=== PATIENT | female | born 1950 | race Caucasian/White ===

== ENCOUNTER → 2017-01-30 | Outpatient (CLI) | payer BC, OTHER | LOC: BRMIMAGING 13:47 | PROVIDERS: ATTEND Family Medicine | DX: Z12.31 Encounter for screening mammogram for malignant neoplasm of breast (principal) | CPT/HCPCS: G0202 ==

== ENCOUNTER → 2017-02-04 | Outpatient (CLI) | payer BC | LOC: BRMIMAGING 08:34 | PROVIDERS: ATTEND Family Medicine | DX: Z13.820 Encounter for screening for osteoporosis (principal); M85.80 Other specified disorders of bone density and structure, unspecified site; Z78.0 Asymptomatic menopausal state; Z79.899 Other long term (current) drug therapy; E07.9 Disorder of thyroid, unspecified ==

== ENCOUNTER → 2017-05-07 | Outpatient (CLI) | payer BC ==
[~2017-05-07] MED LIST: GADOBUTROL 10 ML VIAL IVP ONE
== END ==
LOC: FIMAGING 09:44
PROVIDERS: ATTEND Internal Medicine Hematology & Oncology
DX: C66.9 Malignant neoplasm of unspecified ureter (principal)
CPT/HCPCS: A9585

== ENCOUNTER 2017-05-19 07:40 | Day surgery (SDC) | payer BC ==
--- NOTE | 2017-05-18 10:35 | GHP ---
[f rep st] PREOP HISTORY AND PHYSICAL DATE OF ADMISSION: 05/19/2017 DATE OF SURGERY: 05/19/2017. PREOP DIAGNOSIS: Ureteral cancer. 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 Her oncologist is Dr. Brendon Sloan. She is scheduled to start chemotherapy on 05/20/2017, through 05/22/2017 and then will have several weeks off. She has never had surgery before. PAST MEDICAL HISTORY: Hypothyroidism, hypertension PAST SURGICAL HISTORY: None. ALLERGIES: No known drug allergies. MEDICATIONS: Synthroid, lisinopril. SOCIAL HISTORY: She is , with 2 children. She denies tobacco, alcohol or recreational drug use. REVIEW OF SYSTEMS: A 10-point review of systems is negative, aside from the HPI. PHYSICAL EXAMINATION: GENERAL: Well-developed, well-nourished woman in no acute distress, accompanied by . HEENT: Normocephalic, atraumatic. No hearing deficits. Pupils equal and round. No scleral icterus. Mucous membranes moist. NECK: Trachea midline. RESPIRATORY: Clear to auscultation bilaterally. No increased work of breathing. CARDIOVASCULAR: Regular rate and rhythm. No peripheral edema. SKIN: Warm and dry. PSYCH: Mood and affect normal. NEURO: Grossly intact. IMPRESSION AND PLAN: The patient is a 66-year-old woman with ureteral cancer, who will require a port for chemotherapy. We discussed the benefits of port placement, including easier IV access. We discussed the risks, including but not limited to stroke, heart attack, blood clots or . We discussed risk of infection, bleeding, or pneumothorax. If the port ever becomes infected, it would need to be removed. She understands the risks and would like to proceed. She is scheduled for surgery on May 19, 2017. Patient was additionally seen by Dr. Kaylyn Cox, who agrees with the above impression and plan. /[id number]/MODL MTDD
--- NOTE | 2017-05-19 08:30 | PDHPUP ---
History & Physical Update H&P update statement: This history and physical update is based on an assessment of the patient which was completed after admission or registration (within 24 hours), but prior to the surgery/procedure. H&P update: H&P reviewed & patient examined, no change in patient's condition since H&P completed
[2017-05-19] MEDS ORDERED: LR 1,000 ML IV ONE (08:33)
[2017-05-19] MEDS ORDERED: LIDOCAINE 1% 2 ML INJ ID PRN (08:33)
[2017-05-19] MEDS ORDERED: ceFAZolin 2 GM/DEXTROSE 100 ML IV ONE (08:33)
[2017-05-19 08:48] VITALS: PULSE 72
[2017-05-19] MEDS ORDERED: BUPIVACAINE 0.5% 30 ML SDV ONE (09:20)
[2017-05-19] MEDS ORDERED: PROPOFOL/EMULSION 500 MG/50 ML BOTTLE IV ONE (10:23)
[2017-05-19] MEDS ORDERED: NALOXONE HCL 0.4 MG/ML INJ IVP PRN (10:37)
[2017-05-19] MEDS ORDERED: ALBUTEROL 3 ML DEYVIAL IH PRN (10:37)
[2017-05-19] MEDS ORDERED: ONDANSETRON 4 MG/2 ML VIAL IVP PRN (10:37)
[2017-05-19] MEDS ORDERED: fentaNYL 100 MCG/2 ML INJ IVP PRN (10:37)
--- NOTE | 2017-05-19 10:39 | PDANEPAE ---
ANE History of Present Illness Portacath ANE Past Medical History - Cardiovascular History Hx Hypertension: Yes Hx Arrhythmias: No Hx Chest Pain: No Hx Coronary Artery / Peripheral Vascular Disease: No Hx CHF / Valvular Disease: No Hx Palpitations: No - Pulmonary History Hx COPD: No Hx Asthma/Reactive Airway Disease: No Hx Recent Upper Respiratory Infection: No Hx Oxygen in Use at Home: No Hx Sleep Apnea: No Sleep Apnea Screening Result - Last Documented: Negative - Neurologic History Hx Cerebrovascular Accident: No Hx Seizures: No Hx Dementia: No - Endocrine History Hx Diabetes: No - Renal History Hx Renal Disorders: No - Liver History Hx Hepatic Disorders: No - Neurological & Psychiatric Hx Hx Neurological and Psychiatric Disorders: No - Cancer History Hx Cancer: Yes Cancer History Comment: ureter - Congenital Disorder History Hx Congenital Disorders: No - GI History Hx Gastrointestinal Disorders: No - Other Health History Other Health History: none - Chronic Pain History Chronic Pain: No - Surgical History Prior Surgeries: ureter mass ANE Review of Systems Review of Systems: - Exercise capacity METS (RN): 4 METS ANE Patient History - Allergies Allergies/Adverse Reactions: No Known Allergies Allergy (Verified 05/18/17 17:17) - Home Medications Home Medications: Levothyroxine 05/18/17 [Last Taken Unknown] Lisinopril 05/18/17 [Last Taken Unknown] Simvastatin 05/18/17 [Last Taken Unknown] - NPO status NPO Since - Liquids (Date): 05/19/17 NPO Since - Liquids (Time): 06:00 NPO Since - Solids (Date): 05/18/17 NPO Since - Solids (Time): 20:00 - Smoking Hx Smoking Status: Former smoker - Family Anes Hx Family Hx Anesthesia Complications: none ANE Labs/Vital Signs - Vital Signs Blood Pressure: 139/79 Heart Rate: 72 Respiratory Rate: 16 O2 Sat (%): 97 Height: 154.94 cm Weight: 64.41 kg ANE Physical Exam - Airway Neck exam: FROM Mallampati Score: Class 2 Mouth exam: normal dental/mouth exam - Pulmonary Pulmonary: clear to auscultation - Cardiovascular Cardiovascular: regular rate and rhythym - ASA Status ASA Status: II ANE Anesthesia Plan Anesthesia Plan: GA w LMA
[2017-05-19] MEDS ORDERED: epHEDrine SULFATE 10 MG/ML SYR ONE (10:42)
[2017-05-19] MEDS ORDERED: ONDANSETRON 4 MG/2 ML VIAL ONE (10:49)
[2017-05-19] MEDS ORDERED: DEXAMETHASONE 4 MG/ML VIAL ONE (10:49)
--- NOTE | 2017-05-19 11:14 | POSTOPPROG ---
Post Op Note Date of Operation: 05/19/17 Surgeon: Kaylyn Cox Anesthesiologist: vamsi Anesthesia: GET(General Endotracheal) Pre-op Diagnosis: ureter ca Post-op Diagnosis: ureter ca Indication: 66 yo with ureter ca Procedure: R us guided IJ port Findings: tip svc Inf/Abcess present in the surg proc area at time of surgery?: No EBL: Minimal Specimen(s): none
--- NOTE | 2017-05-19 11:27 | POSTANESTH ---
Post Anesthetic Evaluation Cardiovascular Status: Normal, Stable Respiratory Status: Normal, Stable Level of Consciousness/Mental Status: Can Participate in Eval, Mildly Sleepy, Arousable Pain Control: Adequate, Prn Tx Ordered Nausea/Vomiting Control: Adequate, Prn Tx Ordered Complications Possibly Related to Anesthesia: None Noted
[2017-05-19 12:05] VITALS: RESP 16
[2017-05-19 12:20] VITALS: TEMP 97.9
[2017-05-19 12:34] VITALS: BP 149/65; O2SAT 97
== END 2017-05-19 12:34 | disposition home or self-care (01) ==
LOC: FSGY 07:40
PROVIDERS: ATTEND Surgery
PROC: 0JH60WZ Insertion of Totally Implantable Vascular Access Device into Chest Subcutaneous Tissue and Fascia, Open Approach (ICD-10-PCS; principal; 2017-05-19 09:45)
PROC: 02HV33Z Insertion of Infusion Device into Superior Vena Cava, Percutaneous Approach (ICD-10-PCS; principal; 2017-05-19 09:45)
DX: C66.9 Malignant neoplasm of unspecified ureter (principal)
CPT/HCPCS: C1788; J0690; J1100; J1642; J2405; J2704

== ENCOUNTER 2018-06-11 05:39 | Day surgery (SDC) | payer OTHER, MEDICARE ==
--- NOTE | 2018-06-08 07:54 | GHP ---
DATE OF SURGERY: 06/11/2018 PREPROCEDURE DIAGNOSIS: Porcelain gallbladder. HISTORY OF PRESENT ILLNESS: The patient is a 67-year-old woman with a history of ureter carcinoma. She had imaging performed, which showed improvement in lymph nodes and a porcelain gallbladder. She denies any difficulty eating, nausea. No cy-colored stools, jaundice, pruritus, or abdominal pain. PAST MEDICAL HISTORY: Significant for ureter cancer, hyperlipidemia, and hypothyroidism. PAST SURGICAL HISTORY: Port placement, as well as nephroureterectomy with bladder cuff August 2017. ALLERGIES: No known drug allergies. SOCIAL HISTORY: She has 2 children. Denies tobacco, alcohol, or recreational drug use. REVIEW OF SYSTEMS: A 10-point review of systems is negative aside from the HPI. PHYSICAL EXAMINATION: GENERAL: A pleasant, well-developed, well-nourished woman in no acute distres s. HEENT: Normocephalic, atraumatic. No hearing deficits. Pupils equal and round. No scleral ict erus. Mucous membranes moist. NECK: Trachea midline. RESPIRATORY: Clear to auscultation bilatera lly. No increased work of breathing. CARDIOVASCULAR: Regular rate and rhythm. No peripheral edema . ABDOMEN: Bowel sounds present. Soft, nondistended, nontender. PSYCH: Mood and affect normal. NEURO: Grossly intact. SKIN: Warm and dry. 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 We recommend laparoscopic cholecyste ctomy. Although the risk is small, a porcelain gallbladder may be indicative of gallbladder cancer. We discussed risks of surgery, including, but not limited to heart attack, stroke, blood clots, or d eath. We discussed risk of infection, bleeding, damage to surrounding structures, need for open proc edure due to her previous surgeries, damage to the common bile duct. She understands the risks and w ould like to proceed. /[id number]/MODL
[2018-06-11] MEDS ORDERED: ceFAZolin 2 GM/DEXTROSE 100 ML IV ONE (05:53)
[2018-06-11] MEDS ORDERED: LIDOCAINE 1% 2 ML INJ ID PRN (05:54)
[2018-06-11] MEDS ORDERED: LR 1,000 ML IV ONE (05:54)
--- NOTE | 2018-06-11 06:59 | PDANEPAE ---
ANE History of Present Illness cholelithiasis, here for lap greta ANE Past Medical History - Cardiovascular History Hx Hypertension: Yes Hx Arrhythmias: No Hx Chest Pain: No Hx Coronary Artery / Peripheral Vascular Disease: No Hx CHF / Valvular Disease: No Hx Palpitations: No - Pulmonary History Hx COPD: No Hx Asthma/Reactive Airway Disease: No Hx Recent Upper Respiratory Infection: No Hx Oxygen in Use at Home: No Hx Sleep Apnea: No Sleep Apnea Screening Result - Last Documented: Negative - Neurologic History Hx Cerebrovascular Accident: No Hx Seizures: No Hx Dementia: No - Endocrine History Hx Diabetes: No Hypothyroid: Yes Endocrine History Comment: hypothyroid - Renal History Hx Renal Disorders: Yes Renal History Comment: kidney and ureter removal, 08/2017. bladder resection 2018 - Liver History Hx Hepatic Disorders: No - Neurological & Psychiatric Hx Hx Neurological and Psychiatric Disorders: No - Cancer History Hx Cancer: Yes Cancer History Comment: left ureteral CA - Congenital Disorder History Hx Congenital Disorders: No - GI History Hx Gastrointestinal Disorders: No - Other Health History Other Health History: wears glasses for reading - Chronic Pain History Chronic Pain: No - Surgical History Prior Surgeries: port placement. kidney and ureter removal, 08/2017. Bladder resection, 2018. ureter mass ANE Review of Systems Review of Systems: - Exercise capacity METS (RN): 4 METS ANE Patient History - Allergies Allergies/Adverse Reactions: No Known Allergies Allergy (Verified 06/09/18 13:00) - Home Medications Home Medications: Levothyroxine 05/18/17 [Last Taken 06/10/18 08:00] Lisinopril 05/18/17 [Last Taken 06/10/18 08:00] Simvastatin 05/18/17 [Last Taken 06/10/18 20:00] - NPO status NPO Since - Liquids (Date): 06/11/18 NPO Since - Liquids (Time): 04:00 NPO Since - Solids (Date): 06/10/18 NPO Since - Solids (Time): 19:30 - Smoking Hx Smoking Status: Former smoker - Family Anes Hx Family Hx Anesthesia Complications: none ANE Labs/Vital Signs - Vital Signs Blood Pressure: 138/64 Heart Rate: 69 Respiratory Rate: 18 O2 Sat (%): 98 Height: 154.94 cm Weight: 56.699 kg ANE Physical Exam - Airway Neck exam: FROM Mallampati Score: Class 2 Mouth exam: normal dental/mouth exam - Pulmonary Pulmonary: no respiratory distress - Cardiovascular Cardiovascular: regular rate and rhythym - ASA Status ASA Status: II ANE Anesthesia Plan Anesthesia Plan: general endotracheal anesthesia Total IV Anesthesia: No
[2018-06-11] MEDS ORDERED: MIDAZOLAM 2 MG/2 ML VIAL IVP ONE (07:00)
[2018-06-11] MEDS ORDERED: LIDOCAINE 2% 5 ML SDV ONE (07:04)
[2018-06-11] MEDS ORDERED: ROCURONIUM 50 MG/5 ML VIAL ONE (07:04)
[2018-06-11] MEDS ORDERED: fentaNYL 250 MCG/5 ML INJ ONE (07:05)
[2018-06-11] MEDS ORDERED: PROPOFOL 200 MG/20 ML VIAL ONE (07:05)
[2018-06-11] MEDS ORDERED: BUPIVACAINE 0.5% 30 ML SDV ONE (07:35)
[2018-06-11] MEDS ORDERED: HYDROmorphONE/DILAUDID 2 MG/ML INJ IVP PRN (08:07)
[2018-06-11] MEDS ORDERED: NALOXONE HCL 0.4 MG/ML INJ IVP PRN (08:07)
[2018-06-11] MEDS ORDERED: PROMETHAZINE HCL 25 MG/ML INJ IVP PRN (08:07)
[2018-06-11] MEDS ORDERED: MEPERIDINE 25 MG/0.5 ML AMP IVP PRN (08:07)
[2018-06-11] MEDS ORDERED: oxyCODONE IR 5 MG TAB PO PRN (08:07)
[2018-06-11] MEDS ORDERED: fentaNYL 100 MCG/2 ML INJ IVP PRN (08:07)
[2018-06-11] MEDS ORDERED: ONDANSETRON 4 MG/2 ML VIAL IVP PRN (08:07)
[2018-06-11] MEDS ORDERED: LR 500 ML IV PRN (08:07)
--- NOTE | 2018-06-11 08:55 | POSTOPPROG ---
Post Op Note Date of Operation: 06/11/18 Surgeon: Kaylyn Cox Account Services Associate: aiden Anesthesiologist: olivia Anesthesia: GET(General Endotracheal) Pre-op Diagnosis: porcelain gallbladder Post-op Diagnosis: same Indication: 67 yo with porcelain gallbladder Procedure: lap greta Findings: calcified tense gallbladder Inf/Abcess present in the surg proc area at time of surgery?: Yes Depth: Organ Space EBL: Minimal Specimen(s): gallbladder
[2018-06-11] MEDS ORDERED: ONDANSETRON 4 MG/2 ML VIAL ONE (09:36)
--- NOTE | 2018-06-11 09:38 | GOP ---
DATE OF OPERATION: 06/11/2018 SURGEON: Kaylyn Cox MD WEIGHT LOSS CENTRE MANAGER: Roseann Catalan, JOLANTA ANESTHESIA: General. ANESTHESIOLOGIST: Tyler Franco DO PREOPERATIVE DIAGNOSIS: Porcelain gallbladder. POSTOPERATIVE DIAGNOSIS: Porcelain gallbladder. PROCEDURE PERFORMED: Laparoscopic cholecystectomy. FINDINGS: Extremely firm gallbladder with purulent contents. SPECIMENS: Gallbladder. ESTIMATED BLOOD LOSS: 30 cc. INDICATIONS: The patient is a 67-year-old with history of urothelial cancer, noted to have a porcela in gallbladder. DESCRIPTION OF PROCEDURE: Patient was brought into the operating room, placed supine on the table, a nd general anesthesia was administered. Her abdomen was prepped and draped in the usual sterile fash ion. I infiltrated all sites with 0.5% Marcaine prior to making incisions. I made an incision at her umbilicus. I elevated it. I inserted the Veress needle and passed the hay ging drop test. Her abdomen insufflated easily to a pressure of 15 mmHg. I placed a 5 mm trocar wit h a camera at this site. There were no injuries from Veress needle placement. Under direct vision, I placed a 10 mm subxiphoid trocar and two 5 mm trocars along the right costal margin. Her gallbladder was encased in omentum. I initially had to reduce this from the gallbladder, which w as walled off. I was unable to grasp the gallbladder and lifted the liver bed, and then could identi fy to isolate the triangle of Calot. The cystic duct was dilated and the cystic arteries behind it, they were the only 2 structures directly entering the gallbladder. The cystic duct was sh ort. I clipped it proximally and distally. I then placed an Endoloop distally. I clipped the cysti c duct. There was bleeding more distally and I placed an additional clip in this area. Suction irri gation was performed. I then used electrocautery to remove the gallbladder from the gallbladder sameer a. This plane was extremely difficult as it was imbedded in the liver and extremely hard. There was a breach in the gallbladder and purulent contents were released. I suctioned this for microbiology. I removed the gallbladder from the gallbladder fossa and placed in an EndoCatch bag. I had to enla rge the subxiphoid port to extract the gallbladder. It was sent to Pathology for permanent. Hemostasis achieved on the liver bed with electrocautery. Copious suction irrigation was performed. The loop was in good position, clips in good position. Was able to identify the common bile duct, w hich was protected from harm. The ports removed under direct vision. The abdomen allowed to desuffl ate. The fascia closed at the 10 mm site with 0 Vicryl. Skin closed with 4-0 Monocryl Dermabond mateo lied. She was awakened in the operating room, extubated, transferred to PACU in stable condition. /[id number]/MODL
--- NOTE | 2018-06-11 11:10 | POSTANESTH ---
Post Anesthetic Evaluation Cardiovascular Status: Normal, Stable Respiratory Status: Normal, Stable Level of Consciousness/Mental Status: Can Participate in Eval Pain Control: Adequate, Prn Tx Ordered Nausea/Vomiting Control: Adequate, Prn Tx Ordered Complications Possibly Related to Anesthesia: None Noted
[2018-06-11 12:19] VITALS: BP 142/69
== END 2018-06-11 12:12 | disposition home or self-care (01) ==
LOC: FSGY 05:39
PROVIDERS: ATTEND Surgery
PROC: 0FT44ZZ Resection of Gallbladder, Percutaneous Endoscopic Approach (ICD-10-PCS; principal; 2018-06-11 07:15)
DX: K82.8 Other specified diseases of gallbladder (principal); Z85.54 Personal history of malignant neoplasm of ureter; E03.9 Hypothyroidism, unspecified; Z90.5 Acquired absence of kidney
CPT/HCPCS: J0690; J2250; J2405; J2704; J3010

== ENCOUNTER 2018-06-24 14:03 | Emergency (ER) | payer OTHER, MEDICARE ==
[2018-06-24] MEDS ORDERED: NS 1,000 ML IV ONE (14:37)
--- NOTE | 2018-06-24 14:39 | EDPHY ---
H & P Stated Complaint: hives, hypotension Time Seen by Provider: 06/24/18 14:28 HPI/ROS: CHIEF COMPLAINT: Fatigue, loss of appetite, hives HISTORY OF PRESENT ILLNESS: The patient presents to the ED with fatigue, loss of appetite and hives following her cholecystectomy a week ago. The patient was seen at the [facility] emergency department over the weekend and received IV fluid rehydration. The patient was scheduled to see her regular surgeon today at 2:30 pm however elected to come to the emergency department secondary to ongoing weakness and "looking pale." The patient denies any vomiting or hematochezia. The patient reports she has not been taking any prescription pain medications. She has developed intermittent hives on her abdominal wall and extremities. She reports associated pruritus with these. The patient does take lisinopril. REVIEW OF SYSTEMS: A comprehensive 10 point review of systems is otherwise negative aside from elements mentioned in the history of present illness. Source: Patient, Family - Personal History Current Tetanus/Diphtheria Vaccine: Yes Current Tetanus Diphtheria and Acellular Pertussis (TDAP): Yes - Medical/Surgical History Hx Asthma: No Hx Chronic Respiratory Disease: No Hx Diabetes: No Hx Cardiac Disease: No Hx Renal Disease: No Hx Cirrhosis: No Hx Alcoholism: No Hx HIV/AIDS: No Hx Splenectomy or Spleen Trauma: No Other PMH: gerta, HTN, bladder CA, L nephrectomy, - Social History Smoking Status: Former smoker - Physical Exam Exam: General Appearance: Alert, no distress Eyes: Pupils equal and round no pallor or injection ENT, Mouth: Mucous membranes moist Respiratory: There are no retractions, lungs are clear to auscultation Cardiovascular: Regular rate and rhythm Gastrointestinal: Abdomen is soft and nontender, no masses, bowel sounds normal , surgical incision clean dry and intact Neurological: A&O, normal motor function, normal sensory exam, normal cranial nerves Skin: Several discrete areas of urticaria noted on the arms Musculoskeletal: Neck is supple nontender Extremities: symmetrical, full range of motion Psychiatric: Patient is oriented X 3, there is no agitation Constitutional: Initial Vital Signs Temperature (C) 36.9 C 06/24/18 14:23 Heart Rate 92 06/24/18 14:23 Respiratory Rate 16 06/24/18 14:23 Blood Pressure 111/69 06/24/18 14:23 O2 Sat (%) 97 06/24/18 14:23 O2 Delivery Mode Room Air Allergies/Adverse Reactions: No Known Allergies Allergy (Verified 06/24/18 14:21) Home Medications: Medication Instructions Recorded Levothyroxine 05/18/17 Lisinopril 05/18/17 Simvastatin 05/18/17 predniSONE [prednisone 20mg (RX)] 3 tab PO DAILY #15 tab 06/24/18 Medical Decision Making ED Course/Re-evaluation: The patient presents to the ED with a confusing constellation of symptoms including the development of hives, ongoing anorexia and fatigue since a cholecystectomy a week ago. The patient is noted to be neurologically intact. She has a benign abdominal examination. Workup in the emergency department consists of unremarkable laboratory testing and normal liver function test. The patient was seen by her surgeon Dr. Milton in the ED. The cause of her hives and malaise are somewhat uncertain. The patient was treated with IV Solu- Medrol. The patient was offered admission to the hospital for observation IV fluid rehydration however she would prefers to go home. The patient will be given a prescription for prednisone for the next 5 days. The patient is advised to return to the emergency department for markedly worsening symptoms or other concerns. The patient will follow up with her primary care provider and surgeon as needed. Differential Diagnosis: Differential diagnosis considered includes gastroenteritis, dehydration, metabolic abnormality, medication side effect - Data Points Laboratory Results: Laboratory Results 06/24/18 14:45 06/24/18 14:45 06/24/18 06/24/18 06/24/18 14:45 14:45 14:45 WBC 4.67 10^3/uL 10^3/uL (3.80-9.50) RBC 3.48 10^6/uL L 10^6/uL (4.18-5.33) Hgb 11.1 g/dL L g/dL (12.6-16.3) Hct 31.9 % L % (38.0-47.0) MCV 91.7 fL fL (81.5-99.8) MCH 31.9 pg pg (27.9-34.1) MCHC 34.8 g/dL g/dL (32.4-36.7) RDW 11.8 % % (11.5-15.2) Plt Count 329 10^3/uL 10^3/uL (150-400) MPV 8.2 fL L fL (8.7-11.7) Neut % (Auto) 45.4 % % (39.3-74.2) Lymph % (Auto) 41.8 % % (15.0-45.0) [place] % (Auto) 7.3 % % (4.5-13.0) Eos % (Auto) 5.1 % % (0.6-7.6) Baso % (Auto) 0.2 % L % (0.3-1.7) Nucleat RBC Rel Count 0.0 % % (0.0-0.2) Absolute Neuts (auto) 2.12 10^3/uL 10^3/uL (1.70-6.50) Absolute Lymphs (auto) 1.95 10^3/uL 10^3/uL (1.00-3.00) Absolute Monos (auto) 0.34 10^3/uL 10^3/uL (0.30-0.80) Absolute Eos (auto) 0.24 10^3/uL 10^3/uL (0.03-0.40) Absolute Basos (auto) 0.01 10^3/uL L 10^3/uL (0.02-0.10) Absolute Nucleated RBC 0.00 10^3/uL 10^3/uL (0-0.01) Immature Gran % 0.2 % % (0.0-1.1) Immature Gran # 0.01 10^3/uL 10^3/uL (0.00-0.10) Sodium 130 mEq/L L mEq/L (135-145) Potassium 3.9 mEq/L mEq/L (3.3-5.0) Chloride 97 mEq/L mEq/L (97-110) Carbon Dioxide 26 mEq/l mEq/l (22-31) Anion Gap 7 mEq/L mEq/L (6-14) BUN 9 mg/dL mg/dL (7-23) Creatinine 1.1 mg/dL H mg/dL (0.6-1.0) Estimated GFR 50 Glucose 86 mg/dL mg/dL (70-100) Calcium 9.1 mg/dL mg/dL (8.5-10.4) Total Bilirubin 0.5 mg/dL mg/dL (0.1-1.4) Conjugated Bilirubin 0.3 mg/dL mg/dL (0.0-0.5) Unconjugated Bilirubin 0.2 mg/dL mg/dL (0.0-1.1) AST 43 IU/L IU/L (14-46) ALT 38 IU/L IU/L (9-52) Alkaline Phosphatase 56 IU/L IU/L (38-126) Total Protein 6.4 g/dL g/dL (6.3-8.2) Albumin 3.7 g/dL g/dL (3.5-5.0) Lipase 132 IU/L IU/L (23-300) Medications Given: Discontinued Medications Sodium Chloride (Ns) 1,000 mls @ 0 mls/hr IV EDNOW ONE; Wide Open PRN Reason: Protocol Stop: 06/24/18 14:38 Last Admin: 06/24/18 14:51 Dose: 1,000 mls Methylprednisolone Sodium Succinate (Solu-Medrol) 125 mg IVP EDNOW ONE Stop: 06/24/18 17:07 Last Admin: 06/24/18 17:17 Dose: 125 mg Departure - Departure Disposition: Home, Routine, Self-Care Clinical Impression: Urticaria, Dehydration Condition: Good Instructions: Urticaria (ED) Additional Instructions: 1. Please take prednisone as directed for next 5 days. 2. Please return to the ED for markedly worsening symptoms, worsening dehydration, pain, fever or other concerns. 3. Please follow-up with your primary care provider in general surgeon as scheduled. Referrals: Jeanette Burton MD [Primary Care Provider] - As per Instructions
[2018-06-24 14:54] LABS: PLATELET COUNT 329 10^3/uL (150-400)
[2018-06-24] MEDS ORDERED: methylPREDNISolone SOD SUCC 125 MG/2 ML VIAL IVP ONE (17:06)
[2018-06-24 17:40] VITALS: BP 115/75
--- NOTE | 2018-06-24 18:49 | GCON ---
DATE OF CONSULTATION: 06/24/2018 REQUESTING PHYSICIAN: Dr. Antonino Ellis. HISTORY OF PRESENT ILLNESS: The patient is a 67-year-old woman who underwent laparoscopic cholecyste ctomy for a porcelain gallbladder on June 11, 2018. The pathology was benign. A few days later, she was not feeling well and she fell. She was seen at [facility] and was hydrated. She was th en seen at the [facility] Emergency Room on June 17 and again today. Her complaints today are diffuse rash and malaise. Her also reports that she is not retaining information and is not thinking as clearly as usual. PHYSICAL EXAM: GENERAL: Lying on gurney, pleasant, cooperative with exam, interactive but does not s eem to track the conversation as well as in previous visits. ABDOMEN: Bowel sounds present. Soft, no ntender, nondistended. Incisions are clean, dry, and intact. Results reviewed. I personally reviewed her laboratory work and results from the admission on er 1 as well as on the . Her LFTs are within normal limits, the same with her CBC. Her TSH was e levated and her primary care has increased her Synthroid to 88 mcg. IMPRESSION PLAN: This is a 67-year-old status post laparoscopic cholecystectomy, who has been presen ting with some lethargy, rash and periodic confusion. I do not think that this is related to her cho lecystectomy and I do not see any current surgical complications from that surgery. I recommend she follow up with her primary care provider. /[id number]/MODL
== END 2018-06-24 17:54 | disposition home or self-care (01) ==
DX: L50.9 Urticaria, unspecified (principal); E86.0 Dehydration; I10 Essential (primary) hypertension; Z90.49 Acquired absence of other specified parts of digestive tract; Z85.51 Personal history of malignant neoplasm of bladder
CPT/HCPCS: 96361; 96374; 99284; J2930

== ENCOUNTER → 2018-08-26 | Outpatient (CLI) | payer OTHER, MEDICARE | LOC: FIMAGING 06:13 | PROVIDERS: ATTEND Internal Medicine Endocrinology, Diabetes & Metabolism | DX: E23.7 Disorder of pituitary gland, unspecified (principal) | CPT/HCPCS: 70553; A9585 ==